=== PATIENT | male | born 1970 | race Hispanic/Latino ===

== ENCOUNTER 2017-02-11 19:15 | Emergency (ER) | payer SELFPAY ==
[2017-02-11] MEDS ORDERED: ULTRAM50 M1 PO (21:21)
[2017-02-11 21:40] VITALS: BP 124/72
== END 2017-02-11 21:40 | disposition home or self-care (01) | DRG 538 ==
LOC: ED 19:15
DX: S73.102A Unspecified sprain of left hip, initial encounter (principal); M79.605 Pain in left leg